=== PATIENT | female | born 1980 | race Caucasian/White ===

== ENCOUNTER → 2017-01-13 | Outpatient (CLI) | payer OTHER ==
--- NOTE | 2017-01-13 21:13 | RADIOLOGY REPORT (SQ) ---
EXAM DESCRIPTION: CT ABD/PELVIS WITH IV ORAL COMPLETED DATE/TIME: 01/13/2017 8:46 pm REASON FOR STUDY: GENERALIZED ABDOMINAL TENDERNESS R10.817 GENERALIZED ABDOMINAL TENDERNESS COMPARISON: May 2015 TECHNIQUE: CT scan of the abdomen and pelvis performed using helical scanning technique with dynamic intravenous contrast injection and oral contrast. Images reviewed with lung, soft tissue, and bone w indows. Reconstructed coronal and sagittal MPR images reviewed. Delayed images for evaluation of the urinary system also acquired. All images stored on PACS. All CT scanners at this facility use dose modulation, iterative reconstruction, and/or weight based d osing when appropriate to reduce radiation dose to as low as reasonably achievable (ALARA). [facility]: Dose Right [facility]: CareDose [facility]: Dose Right [facility]: Teradose 4D [facility]: Dextr CONTRAST TYPE AND DOSE: contrast/concentration: Isovue 370.00 mg/ml; Total Contrast Delivered: 74.0 ml; Total Saline Delivered: 66.0 ml RENAL FUNCTION: Creatinine 0.8 RADIATION DOSE: Up-to-date CT equipment and radiation dose reduction techniques were employed. CTDIv ol: NaN - NaN mGy. DLP: 0 mGy-cm.. LIMITATIONS: None. FINDINGS: LOWER CHEST: No significant findings. No nodules or infiltrates. LIVER: Normal size. No masses. No dilated ducts. SPLEEN: Normal size. No focal lesions. PANCREAS: No masses. No significant calcifications. No adjacent inflammation or peripancreatic fluid collections. Pancreatic duct not dilated. GALLBLADDER: Status post cholecystectomy ADRENAL GLANDS: No significant masses or asymmetry. RIGHT KIDNEY AND URETER: No solid masses. No significant calcifications. No hydronephrosis or hyd roureter. LEFT KIDNEY AND URETER: No solid masses. No significant calcifications. No hydronephrosis or hydr oureter. AORTA AND VESSELS: No aneurysm. No dissection. Renal arteries, SMA, celiac without stenosis. RETROPERITONEUM: No retroperitoneal adenopathy, hemorrhage or masses. BOWEL AND PERITONEAL CAVITY: There is thickening of the hahn of multiple small bowel loops which cou ld represent edematous or inflammatory changes. A small amount of perihepatic and perisplenic asciti c fluid is identified as well as a couple small pockets of ascitic fluid in the lower abdomen. APPENDIX: Normal. PELVIS: No mass. No free fluid. Normal bladder. ABDOMINAL WALL: No masses. No hernias. BONES: No significant or acute findings. OTHER: No other significant finding. IMPRESSION: There is thickening of the hahn of multiple small bowel loops as noted above which coul d represent edematous or inflammatory changes. These changes are less pronounced than on the previou s study. Small amount of perihepatic and perisplenic ascitic fluid is identified as well as a couple small pockets of ascitic fluid in lower abdomen. Other findings as noted above. TECHNICAL DOCUMENTATION: JOB ID: [id number] Quality ID # [id number]: Final reports with documentation of one or more dose reduction techniques (e.g., Au tomated exposure control, adjustment of the mA and/or kV according to patient size, use of iterative reconstruction technique) 2010 [employer]- All Rights Reserved
== END ==
LOC: RAD 17:18
PROVIDERS: ATTEND Nurse Practitioner Family
DX: R10.817 Generalized abdominal tenderness (principal)
CPT/HCPCS: 74177; 82565

== ENCOUNTER 2017-02-07 07:35 | Day surgery (SDC) | payer OTHER ==
--- NOTE | 2017-01-31 10:10 | HISTORY AND PHYSICAL E ---
History and Physical NAME: LIZY HERNANDEZ : 1980 AGE: 36Y ADMITTED: 02/07/2017 ROOM: CHIEF COMPLAINT: The patient presented at this time regarding colon screening. PHYSICAL EXAMINATION: VITAL SIGNS: Blood pressure 120/80, pulse 80, respirations 18, temperature 98. HEAD, EARS, EYES, NOSE AND THROAT: Normal. ABDOMEN: Soft. NEUROLOGIC: Exam negative. Referred to me first regarding constipation. SOCIAL HISTORY: , does not smoke, does not drink. SURGICAL HISTORY: x2. REVIEW OF SYSTEMS: CARDIAC: Hypertension. ENDOCRINE: Negative. GASTROINTESTINAL: Reflux, constipation. FAMILY HISTORY: Father is alive. Mom is alive, has gallbladder disease. LABORATORY DATA: White count 6, hemoglobin 12, hematocrit 35. Liver function is normal. IMAGING STUDIES: Ultrasound shows gallbladder wall thickening. The patient did have a cholecystectomy. CONCLUSION: Colon screen regarding colitis. The patient may need to have small bowel series as well pending colon report. Upper scope done back in 2011 shows gastritis. PLAN: Colon screening. The patient presented with abdominal pain. The patient is status post cholecystectomy. The patient presented at this time for colon screening. Colonoscopy regarding in bowel habits and question nonspecific colitis, 02/07. REVIEW OF THE RECORDS: The patient did have a CT, it shows as follows; pancreas negative, gallbladder cholecystectomy. The patient did have the following; thickening of the wall muscle with small bowel loops. Small amount perihepatic, perisplenic ascites. Conclusion: Small amount of perihepatic and perisplenic ascites. CONCLUSION: 1. Question inflammatory bowel disease. 2. Nonspecific colitis. 3. Kidneys are negative. 4. The aorta vessels; no aneurysm, no dissection. 5. The artery, SMA, celiac without stenosis. 6. No retroperitoneal adenopathy, no masses, no hemorrhage. 7. Bowels and peritoneal cavity there is thickening of the wall, multiple small bowels could represent edema or inflammatory changes. A small amount of perihepatic and perisplenic fluids. 8. Appendix normal. 9. Pelvic no mass. 10. Abdominal wall no mass. DICTATING PHYSICIAN: JAZMIN MENDEZ M.D. [id number] PHY#: [id number] ID: [id number] JOB#: [id number] ACCT: [id number] cc: >
[~2017-02-07 07:35] MED LIST: FLUMAZENIL INJ 0.5 MG/5 ML VIAL ONE; GLYCOPYRROLATE INJ 0.4 MG/2 ML VIAL ONE; LIDOCAINE 2% JELLY 30 ML TUBE ONE; NALOXONE HCL INJ/PF 0.4 MG/1 ML SDV ONE; ONDANSETRON HCL INJ/PF 4 MG/2 ML SDV ONE
[2017-02-07] MEDS ORDERED: GLUCAGON,HUMAN RECOMB 1 MG INJ ONE (07:36)
[2017-02-07] MEDS ORDERED: EPINEPHRINE INJ 1 MG/10 ML DISP.SYRIN ONE (07:36)
[2017-02-07] MEDS: MIDAZOLAM 2 MG/2 ML INJ ONE ×2 (08:23→08:27)
[2017-02-07] MEDS: FENTANYL CITRATE INJ/PF 100 MCG/2 ML AMPUL ONE ×3 (08:25→08:32)
[2017-02-07 09:50] VITALS: BP 104/66
[2017-02-07 10:19] LABS: ABSOLUTE LYMPHOCYTES (AUTO) 1.1 10^3/uL (0.5-4.7); ABSOLUTE MONOCYTES (AUTO) 0.6 10^3/uL (0.1-1.4); BASOPHILS % (AUTO) 0.3 % (0-2); EOSINOPHILS % (AUTO) 0.3 % (0-6); HEMATOCRIT 35.9 % (36.0-47.0); HEMOGLOBIN 12.3 g/dL (12.0-15.5); LYMPHOCYTES % (AUTO) 12.7 % (13-45); MEAN CORPUSCULAR HEMOGLOBIN 30.1 pg (27.0-33.4); MEAN CORPUSCULAR HGB CONC 34.4 g/dL (32.0-36.0); MEAN CORPUSCULAR VOLUME 88 fl (80-97); MONOCYTES % (AUTO) 7.3 % (3-13); RED BLOOD COUNT 4.09 10^6/uL (3.72-5.28); RED CELL DISTRIBUTION WIDTH 13.2 % (11.5-14.0); SEGMENTED NEUTROPHILS % (AUTO) 79.4 % (42-78); WHITE BLOOD COUNT 8.8 10^3/uL (4.0-10.5)
[2017-02-07 10:41] LABS: ALANINE AMINOTRANSFERASE 54 U/L (9-52); ALKALINE PHOSPHATASE 67 U/L (38-126); ANION GAP 11 (5-19); ASPARTATE AMINO TRANSFERASE 38 U/L (14-36); BILIRUBIN,DIRECT 0.3 mg/dL (0.0-0.4); BILIRUBIN,TOTAL 0.9 mg/dL (0.2-1.3); BLOOD UREA NITROGEN 7 mg/dL (7-20); CALCIUM 9.2 mg/dL (8.4-10.2); CARBON DIOXIDE 27 mmol/L (22-30); CHLORIDE 101 mmol/L (98-107); GLUCOSE 150 mg/dL (75-110); POTASSIUM 3.9 mmol/L (3.6-5.0); SODIUM 138.6 mmol/L (137-145)
[2017-02-07 10:43] LABS: C-REACTIVE PROTEIN < 5.0 mg/L (<10.0)
[2017-02-07 10:56] LABS: ERYTHROCYTE SEDIMENTATION RATE 11 mm/hr (0-20)
--- NOTE | 2017-02-07 12:09 | OPERATIVE REPORT E ---
Operative Report NAME: LIZY HERNANDEZ : 1980 AGE: 36Y DATE OF SURGERY: 02/07/2017 ROOM: PREOPERATIVE DIAGNOSES: 1. Abdominal pain. 2. Abnormal CT, question inflammatory bowel disease. POSTOPERATIVE DIAGNOSES: 1. External hemorrhoids, mild. 2. Skin tag. 3. Possible colitis, mild. PROCEDURE: Colonoscopy. SURGEON: JAZMIN MENDEZ M.D. TISSUE REMOVED OR ALTERED: Biopsy right colon. ANESTHESIA: Patient was given Versed 4, fentanyl 100. DESCRIPTION: Rectal exam: External hemorrhoids, skin tag. Rectum: Sigmoid normal. Descending colon normal. Transverse colon normal. Ascending colon normal. Cecum: Possibility of mild colitis. Biopsy obtained. I tried to intubate the terminal ileum unsuccessful. Scope withdrawn from cecum, ascending, transverse, descending, sigmoid all the way to the rectum. CONCLUSION: 1. Mild colitis. Awaiting biopsy. 2. External hemorrhoids. 3. Skin tag. PLAN: Awaiting biopsy. Lab studies. Soft diet. Hold aspirin. Followup office visit in the next few days. DICTATING PHYSICIAN: JAZMIN MENDEZ M.D. [id number] [id number] PHY#: [id number] ID: [id number] JOB#: [id number] ACCT: [id number] cc:[facility] JAZMIN BUNCH M.D. >
--- NOTE | 2017-02-07 12:59 | DISCHARGE SUMMARY E ---
Discharge Summary NAME: SIA HERNANDEZ : 1980 AGE: 36Y ADMITTED: 02/07/2017 DISCHARGED: 02/07/2017 FINAL DIAGNOSES: 1. ? COLITIS. 2. QUESTION CROHN DISEASE. PROCEDURES: 1. Colonoscopy. 2. Biopsy. HISTORY AND HOSPITAL COURSE: Sia is a 36-year-old female; presented with abdominal pain. Abnormal CT, question of Crohn disease. Some ascites around the small bowel. SURGICAL HISTORY: 1. Cholecystectomy. 2. x2. FINDINGS: Colon shows no definite colitis. Biopsy obtained, right colon. DISCHARGE PLAN: 1. Lab studies. 2. Awaiting biopsy results. 3. Awaiting serology for inflammatory bowel disease. 4. Consider small bowel series. 5. Soft diet. 6. Patient to see us in the office in the next few days. DICTATING PHYSICIAN: JAZMIN MENDEZ M.D. [id number] PHY#: [id number] ID: [id number] JOB#: [id number] ACCT: [id number] cc:[facility] JAZMIN MENDEZ M.D. >
== END 2017-02-07 10:10 | disposition home or self-care (01) ==
LOC: END 07:35
PROVIDERS: ATTEND Specialist
PROC: 0DBF8ZX Excision of Right Large Intestine, Via Natural or Artificial Opening Endoscopic, Diagnostic (ICD-10-PCS; principal; 2017-02-07 08:00)
DX: K64.4 Residual hemorrhoidal skin tags (principal); K21.9 Gastro-esophageal reflux disease without esophagitis; I10 Essential (primary) hypertension
CPT/HCPCS: 45380; 86256; 36415; 85025; 85652; 86140; 80053; 88305 ×2; J2250; J3010; J1610; J2405; J0171; J2310; J3490

== ENCOUNTER 2017-05-26 08:19 | Day surgery (SDC) | payer OTHER ==
--- NOTE | 2017-05-21 13:27 | HISTORY AND PHYSICAL E ---
History and Physical NAME: LIZY HERNANDEZ : 1980 AGE: 37Y ADMITTED: ROOM: CHIEF COMPLAINT: Reflux. HISTORY OF PRESENT ILLNESS: The patient is known to me from 2011. Upper scope showed gastritis, no bacteria, no dysplasia. The patient does have anemia with hemoglobin 12, crit 35. She did have ultrasound done, shows the following: The patient's gallbladder is consistent with gallstones, gallbladder wall is thickened, 2.6 mm. Again, the patient's ultrasound was consistent with multiple gallstones with wall thickening. PAST SURGICAL HISTORY: Cholecystectomy, . She does have a question of Crohn disease and underwent colonoscopy. Colonoscopy showed no definite colitis. CT shows status post cholecystectomy. There is thickening of the wall of small bowel noted above which could be edema, question inflammatory bowel disease. The patient's serology was nonconclusive. I did also see her on 02/07/2017, question inflammatory bowel disease, external hemorrhoids. Colon done January, shows mild colitis and hemorrhoids, benign colon mucosa, C-reactive protein normal. The patient does have dysphagia and reflux. The patient presented with abdominal pain. She is to undergo upper endoscopy. We did colon her on 2016 and her colon shows question colitis. Now patient for upper scope. MEDICATIONS: 1. Metformin. 2. Lisinopril. 3. Bentyl. 4. MiraLax. 5. Zofran. PLAN: Admit for upper scope 05/26/2017. DICTATING PHYSICIAN: JAZMIN MENDEZ M.D. [id number] [id number] PHY#: [id number] ID: [id number] JOB#: [id number] ACCT: [id number] cc:JAZMIN MENDEZ M.D. >
--- NOTE | 2017-05-21 14:53 | HISTORY AND PHYSICAL E ---
History and Physical NAME: LIZY HERNANDEZ : 1980 AGE: 37Y ADMITTED: 05/26/2017 ROOM: REFERRING PRIMARY: [facility] CHIEF COMPLAINT: Abdominal pain. Patient admitted for upper endoscopy. HISTORY: Patient is known to me. I saw her back in January for inflammatory bowel disease question. She did have hemorrhoids and she did have mild colitis, persistent abdominal pain. Patient admitted regarding upper scope. I saw the patient back in 2011 for reflux, dysphagia, constipation. REVIEW OF SYSTEMS: CARDIAC: Hypertension. ENDOCRINE: Negative. GASTROINTESTINAL: Reflux, dysphagia, constipation. FAMILY HISTORY: Father is alive. Mom is alive, has history of heart disease. SOCIAL HISTORY: . ALLERGIES: No known allergies. SURGERIES: x2. PHYSICAL EXAMINATION: VITAL SIGNS: Blood pressure 120/70, pulse 80, respirations 18, temp is 98. HEENT: Normal. NECK: Supple. LUNGS: Clear. ABDOMEN: Soft. NEUROLOGIC: Negative. MEDICATIONS: 1. Metformin. 2. Lisinopril. 3. Bentyl. 4. Miralax. 5. Zofran. CONCLUSION: 1. Abdominal pain. 2. Reflux. PLAN: Upper scope. ADDENDUM: Patient did have upper scope 2011 where she did have no bacteria. Esophagus shows no abnormalities. . DICTATING PHYSICIAN: JAZMIN MENDEZ M.D. [id number] [id number] PHY#: [id number] ID: [id number] JOB#: [id number] ACCT: [id number] cc:JAZMIN MENDEZ M.D. >
[~2017-05-26 08:19] MED LIST changes: +EPINEPHRINE INJ 1 MG/10 ML DISP.SYRIN ONE; +FENTANYL CITRATE INJ/PF 100 MCG/2 ML AMPUL ONE; -LIDOCAINE 2% JELLY 30 ML TUBE ONE
[2017-05-26] MEDS: MIDAZOLAM 2 MG/2 ML INJ ONE ×2 (08:46→08:50)
[2017-05-26 09:56] VITALS: BP 112/67
--- NOTE | 2017-05-26 09:59 | DISCHARGE SUMMARY E ---
Discharge Summary NAME: LIZY HERNANDEZ : 1980 AGE: 37Y ADMITTED: 05/26/2017 DISCHARGED: 05/26/2017 HOSPITAL COURSE: A 37-year-old female with abdominal pain, nausea, vomiting, underwent a scope today that showed no ulcer. She did have mild esophagitis, gastritis, and duodenitis. DISCHARGE PLAN: 1. Do laboratory studies. 2. Hold aspirin and treat with PPI. 3. Awaiting biopsy results. DICTATING PHYSICIAN: JAZMIN MENDEZ M.D. [id number] [id number] PHY#: [id number] ID: [id number] JOB#: [id number] ACCT: [id number] cc:[facility], JAZMIN MENDEZ M.D. >
[2017-05-26 10:33] LABS: ABSOLUTE LYMPHOCYTES (AUTO) 1.1 10^3/uL (0.5-4.7); ABSOLUTE MONOCYTES (AUTO) 0.3 10^3/uL (0.1-1.4); ABSOLUTE NEUT (AUTO) 4.6 10^3/uL (1.7-8.2); BASOPHILS % (AUTO) 0.5 % (0-2); EOSINOPHILS % (AUTO) 0.5 % (0-6); HEMATOCRIT 36.7 % (36.0-47.0); HEMOGLOBIN 12.5 g/dL (12.0-15.5); HGB HCT DIFFERENCE 0.8; LYMPHOCYTES % (AUTO) 18.4 % (13-45); MEAN CORPUSCULAR HEMOGLOBIN 30.2 pg (27.0-33.4); MEAN CORPUSCULAR VOLUME 89 fl (80-97); MONOCYTES % (AUTO) 5.1 % (3-13); RED BLOOD COUNT 4.14 10^6/uL (3.72-5.28); SEGMENTED NEUTROPHILS % (AUTO) 75.5 % (42-78); WHITE BLOOD COUNT 6.1 10^3/uL (4.0-10.5)
[2017-05-26 10:58] LABS: C-REACTIVE PROTEIN 5.2 mg/L (<10.0); LIPASE 76.5 U/L (23-300)
[2017-05-26 11:13] LABS: ERYTHROCYTE SEDIMENTATION RATE 16 mm/hr (0-20)
--- NOTE | 2017-05-26 14:47 | OPERATIVE REPORT E ---
Operative Report NAME: LIZY HERNANDEZ : 1980 AGE: 37Y DATE OF SURGERY: 05/26/2017 ROOM: PREOPERATIVE DIAGNOSES: 1. Abdominal pain. 2. Reflux. POSTOPERATIVE DIAGNOSES: 1. Esophagitis, mild. 2. Gastritis, mild. 3. Duodenitis, mild. PROCEDURES: 1. Esophagoscopy. 2. Gastroscopy. 3. Duodenoscopy. SURGEON: JAZMIN MENDEZ M.D. TISSUE REMOVED OR ALTERED: Gastric biopsy. ANESTHESIA: Versed 3, fentanyl 100. DESCRIPTION OF PROCEDURE: Baby scope passed under guided vision, no difficulties. Esophagoscopy junction at 35 cm. Mild esophagitis. No stricture. No hernia. Gastroscopy: Mild gastritis. No ulcers. Biopsy obtained H. pylori. Duodenoscopy: Duodenum shows mild duodenitis. No ulcers. CONCLUSION: 1. Mild esophagitis. 2. Mild gastritis. 3. Mild duodenitis. 4. Upper scope shows no ulcers, no malignancy. Question inflammatory bowel disease on previous colonoscopy. PLAN: Hold aspirin, nonsteroidal. Continue present management. Awaiting biopsy results. Will do lab studies regarding abdominal pain, nausea, vomiting, IBD, C-reactive protein. Patient to see us in the office in the next few days. DICTATING PHYSICIAN: JAZMIN MENDEZ M.D. [id number] [id number] [facility]#: [id number] ID: [id number] JOB#: [id number] ACCT: [id number] cc:[facility] JAZMIN MENDEZ M.D. >
== END 2017-05-26 10:15 | disposition home or self-care (01) ==
LOC: END 08:19
PROVIDERS: ATTEND Specialist
PROC: 0DB68ZX Excision of Stomach, Via Natural or Artificial Opening Endoscopic, Diagnostic (ICD-10-PCS; principal; 2017-05-26 09:00)
DX: K20.9 Esophagitis, unspecified (principal); K29.30 Chronic superficial gastritis without bleeding; K29.80 Duodenitis without bleeding; K21.9 Gastro-esophageal reflux disease without esophagitis; R10.9 Unspecified abdominal pain; I10 Essential (primary) hypertension; Z79.899 Other long term (current) drug therapy; Z79.84 Long term (current) use of oral hypoglycemic drugs; Z90.49 Acquired absence of other specified parts of digestive tract
CPT/HCPCS: 43239; 86256; 36415; 82150; 83690; 85025; 85652; 86140; 88342 ×2; 88305 ×2; J2250; J3010; J2405; J0171; J2310; J3490